=== PATIENT | female | born 1975 | race Caucasian/White ===

== ENCOUNTER 2020-02-04 19:10 | Emergency (ER) | payer MEDICAID ==
[~2020-02-04] VITALS: Ht 165.1 cm; Wt 129.0 kg
[2020-02-04] MEDS ORDERED: IBUPROFEN 600MG TABLET PO ONE (22:45)
[2020-02-04] MEDS ORDERED: LIDOCAINE HCL 1% 20ML VIAL (Pyxis) INJ INFIL ONE (22:45)
[2020-02-04] MEDS ORDERED: CEFTRIAXONE SODIUM 1 G/VIAL IM ONE (22:45)
[2020-02-04] MEDS ORDERED: SULFAMETHOXAZOLE/TRIMETHOPRIM 800/160MG TABLET PO ONE (23:00)
[2020-02-05 00:42] VITALS: BP 130/85
== END 2020-02-05 00:43 | disposition home or self-care (01) ==
LOC: ER 19:10
DX: L03.116 Cellulitis of left lower limb (principal); Z90.49 Acquired absence of other specified parts of digestive tract
CPT/HCPCS: 93005; 93970; 96372; 99284; J0696; J3490